=== PATIENT | female | born 1940 | race Caucasian/White ===

== ENCOUNTER 2016-10-21 06:46 | Inpatient (IN) | payer OTHER ==
[2016-09-27 10:59] VITALS: BMI 40.0
--- NOTE | 2016-09-27 11:37 | PAT Medication Instructions ---
Service Date Sep 27, 2016. Current Home Medication List Acetaminophen (Tylenol), 1,000 MG PO TID Aldioxa/Cellulose/Chloroxylen (Zeasorb), 1 DOSE TOP DAILY PRN for BREAST Alprazolam (Xanax), 0.5 TAB PO HS PRN for PRN Aspirin (Aspirin Ec), 81 MG PO 5 X WEEK Calcium/Vitamin D (Os-Nicolas 500 Plus D), 1 TAB PO QAM Cholecalciferol (D 2000), 1 TAB PO QAM Coenzyme Q10 (Ubidecarenone) (Co Q10 *), 1 CAP PO QAM Fish Oil (Presidio-3), 1 CAP PO QAM Hydrochlorothiazide (Hctz *), 25 MG PO QAM Insulin Glargine (Lantus Solostar), 30 UNITS SC HS Irbesartan (Avapro *), 150 MG PO QPM Lactobacillus (Acidophilus), 1 CAP PO QAM Lactobacillus (Acidophilus), 0.5 CAP PO QPM Latanoprost 0.005% Oph (Xalatan 0.005% Oph), 1 DROP OPB QPM Metformin Hcl (Glucophage), 1,000 MG PO QAM Metformin Hcl (Glucophage), 1,500 MG PO QPM Metoprolol Succinate (Metoprolol Succinate ER), 25 MG PO QAM Pioglitazone (Actos *), 15 MG PO QAM Rosuvastatin Calcium (Crestor), 5 MG PO Q2D Timolol Maleate (Timolol 0.5% Oph Soln 15 Ml), 1 DROP OPB QAM Tramadol (Ultram), 50 MG PO Q8H PRN for Pain Verapamil Sust Rel (Calan Sr Ext Rel), 240 MG PO QAM [Bilberry], 1 TABLET PO QAM [Cinnamon], 1 TAB PO QPM [Nichole C], 500 MG PO QAM [Flax Seed Oil], 1,000 MG PO BID Medication Instructions For Your Scheduled Surgery - Hold the following medications 2 weeks prior to surgery: Coenzyme Q10 (Ubidecarenone) (Co Q10 *), 1 CAP PO QAM Fish Oil (Presidio-3), 1 CAP PO QAM [Bilberry], 1 TABLET PO QAM [Cinnamon], 1 TAB PO QPM [Flax Seed Oil], 1,000 MG PO BID - Hold the following medications 48 hours prior to surgery: Metformin Hcl (Glucophage), 1,000 MG PO QAM Metformin Hcl (Glucophage), 1,500 MG PO QPM - Hold the following medications 24 hours prior to surgery: Irbesartan (Avapro *), 150 MG PO QPM Aldioxa/Cellulose/Chloroxylen (Zeasorb), 1 DOSE TOP DAILY PRN for BREAST - Hold the following medications the morning of surgery: Pioglitazone (Actos *), 15 MG PO QAM Calcium/Vitamin D (Os-Nicolas 500 Plus D), 1 TAB PO QAM Cholecalciferol (D 1999), 1 TAB PO QAM Hydrochlorothiazide (Hctz *), 25 MG PO QAM Verapamil Sust Rel (Calan Sr Ext Rel), 240 MG PO QAM [Nichole C], 500 MG PO QAM Lactobacillus (Acidophilus), 1 CAP PO QAM - Take the following medications the morning of surgery with a sip of water OTHERWISE NOTHING TO EAT OR DRINK AFTER MIDNIGHT: Acetaminophen (Tylenol), 1,000 MG PO TID (may take if needed up to 4 hours prior to surgery) Tramadol (Ultram), 50 MG PO Q8H PRN for Pain (may take if needed up to 4 hours prior to surgery) Aspirin (Aspirin Ec), 81 MG PO 5 X WEEK Metoprolol Succinate (Metoprolol Succinate ER), 25 MG PO QAM Timolol Maleate (Timolol 0.5% Oph Soln 15 Ml), 1 DROP OPB QAM - Take the following medications as scheduled the night before surgery: Acetaminophen (Tylenol), 1,000 MG PO TID Alprazolam (Xanax), 0.5 TAB PO HS PRN for PRN Tramadol (Ultram), 50 MG PO Q8H PRN for Pain Rosuvastatin Calcium (Crestor), 5 MG PO Q2D Insulin Glargine (Lantus Solostar), 30 UNITS SC HS Lactobacillus (Acidophilus), 0.5 CAP PO QPM Latanoprost 0.005% Oph (Xalatan 0.005% Oph), 1 DROP OPB QPM If you have any questions please call us at [phone] (Lena Forde PA-C) or [phone] or [phone]
[2016-09-27 12:11] LABS: BASO % 0.6 %; BASO ABS # 0.04 K/uL (0-0.2); COMPLETE YES; EOS % 3.2 %; HEMATOCRIT 38.8 % (37-47); IG% 0.3 %; LYMPH % 27.8 %; LYMPH ABS # 1.88 K/uL (1.2-3.4); MEAN CELL VOLUME 89.8 fL (80-100); MEAN CORPUSCULAR HEMOGLOBIN 29.9 pg (25-34); MEAN CORPUSCULAR HGB CONC 33.2 g/dl (32-36); MEAN PLATELET VOLUME 9.8 fL (7.4-10.4); MONO % 6.5 %; NEUT % 61.6 %; PLATELET COUNT 317 K/uL (130-400); RED BLOOD COUNT 4.32 M/uL (4.2-5.4); WHITE BLOOD COUNT 6.77 K/uL (4.8-10.8)
[2016-09-27 12:14] LABS: URINE APPEARANCE CLEAR (CLEAR); URINE BILIRUBIN NEG (NEG); URINE COLOR YELLOW; URINE NITRITE NEG (NEG); URINE SPECIFIC GRAVITY 1.014 (1.000-1.030); UROBILINOGEN NEG (NEG); ZZUR CULT IF INDIC CLEAN CATCH NO
[2016-09-27 12:19] LABS: PARTIAL THROMBOPLASTIN RATIO 1.1; PROTHROMBIN TIME (PATIENT) 10.7 SECONDS (9.0-12.0)
--- NOTE | 2016-09-27 12:23 | DIAGNOSTIC IMAGING REPORT ---
CHEST 2 VIEWS ROUTINE HISTORY: Preop. COMPARISON: Chest 12/29/2014. FINDINGS: The lungs are clear. Cardiac silhouette is normal in size. No pleural effusions. No pneumothorax. Tortuous thoracic aorta, unchanged. IMPRESSION: No acute process. Electronically signed by: Jian Gonzalez M.D. 09/27/2016 12:21 PM Dictated Date/Time: 09/27/2016 12:18 PM
[2016-09-27 12:33] LABS: MANUAL MICROSCOPIC REQUIRED? NO; REVIEW REQ? NO
[2016-09-27 12:37] LABS: BUN/CREATININE RATIO 23.9 (10-20); CALCIUM 9.5 mg/dl (8.5-10.1); CREATININE 0.59 mg/dl (0.60-1.20); POTASSIUM 4.3 mmol/L (3.5-5.1)
[2016-09-27 12:44] LABS: ESTIMATED AVERAGE GLUCOSE 160 mg/dl; HA1C FLAG Normal (Normal)
--- NOTE | 2016-10-20 09:31 | HISTORY & PHYSICAL EXAMINATION ---
DATE OF ADMISSION: 10/21/16 CHIEF COMPLAINT: Left hip pain. HISTORY OF PRESENT ILLNESS: Fina is a 76-year-old female with a 1 year history of pain in her left hip. The patient rates her pain a 10/10. She has pain with her daily activities. She has limited standing and walking tolerance. Pain is worse with weightbearing. The patient uses a cane to ambulate. She takes Tylenol and tramadol without relief. She has failed conservative treatment and is scheduled for left hip replacement. PAST MEDICAL HISTORY: Diabetes, hypertension, aortic stenosis and acid reflux. She denies heart disease or DVT. PAST SURGICAL HISTORY: Tubal ligation, hysterectomy, micro disc surgery, right total knee replacement. SOCIAL HISTORY: The patient denies alcohol or tobacco use. She lives in a single story home. She is and retired. FAMILY HISTORY: Positive for DVT in her sister. MEDICATIONS: Lantus 30 units daily, metformin 500 mg 2 tablets a.m. 3 tablets p.m., pioglitazone 15 mg daily, metoprolol 50 mg half tablet daily, verapamil 240 mg daily, hydrochlorothiazide 25 mg daily, irbesartan 150 mg daily, tramadol 50 mg p.r.n., timolol 0.5%, Latanoprost 0.005%, acidophilus 1-1/2 tablets daily, calcium 600 mg 1 daily, Nichole-C 500 mg daily, CoQ10 100 mg daily, bilberry extract, zinc, flaxseed oil, aspirin 81 mg, alprazolam 0.5 mg p.r.n., Crestor 5 mg every other day. ALLERGIES: PENICILLIN, CODEINE, MOBIC, SULINDAC, INDERAL AND INDOCIN. REVIEW OF SYSTEMS: See HPI. Ten other systems reviewed, all negative. PHYSICAL EXAMINATION: VITAL SIGNS: Height 5 foot 2 inches. Weight 220 pounds. BMI is 40. GENERAL: This is a well-developed, well-nourished female who is alert and oriented x3. Mood and affect are appropriate. HEENT: Normocephalic, atraumatic. Mucous membranes are moist and intact. NECK: Supple without lymphadenopathy. HEART: Regular rate and rhythm without murmurs, rubs or gallops. LUNGS: Clear to auscultation without wheezes or rhonchi. ABDOMEN: Soft and nontender. Bowel sounds are equal and active. EXTREMITIES: No ecchymosis, redness or warmth. Thigh and calf are soft and nontender. Log roll of the hip reproduces pain in the groin. She is neurovascularly intact with +5/5 strength. X-RAY EXAMINATION: Shows joint space narrowing and osteophyte formation. IMPRESSION: Degenerative joint disease, left hip. PLAN: The patient will be admitted for a left total hip arthroplasty. We will plan on aspirin for DVT prophylaxis. PCP is Dr. Sammy Green in [facility]
[~2016-10-21] VITALS: Ht 157.5 cm; Wt 99.7 kg
[2016-10-21] VITALS (8 sets, daily range): BP systolic 143–180; BP diastolic 75–96; PULSE 59–73; TEMP 36.4–36.7; O2SAT 94–100; Ht 157.5 cm; Wt 99.7 kg
[2016-10-21] MEDS: TRANEXAMIC ACID INJ 1,000 MG in SODIUM CHLORIDE 0.9% 100ML 100 ML IV SCH ×2 (06:30→09:19)
[~2016-10-21 06:46] MED LIST: ACET-1256 PO; ACETAMINOPHEN 500 MG TAB PO SCH; ACT15 PO; ALPR-411 PO; ASPI81TA28 PO; AVP150 PO; BILBERRY PO; BUPIVACAINE 0.5 % 5 MG/1 ML PF 10ML VIAL ONE; CALC500C70 PO; CHOL1TAB76 PO; CINNAMON PO; CLINDAMYCIN 600 MG/54 ML D5W 54 ML IV SCH; COQ10100 PO; CeleBREX 200 MG CAP PO SCH; ESTER C PO; FAMOTIDINE 20 MG TAB PO SCH; FLAX SEED OIL PO; GABAPENTIN 300 MG CAP PO SCH; HYDC25 PO; INSDGIPEN SC; LACTATED RINGER'S 1000ML 1,000 ML IV SCH; LACTATED RINGER'S 1000ML 500 ML IV ONE; LACTATED RINGER'S 1000ML IV SCH; LACTCAP3 PO; LATA0.009 OPB; METF1000 PO; METF500T PO; METOCLOPRAMIDE HCL 10 MG TAB PO SCH; OMEG10007 PO; OXYCODONE HCL 10 MG TABCR (OXYCONTIN) PO SCH; POLYMYXIN B SULFATE 100,000 UNITS in NSS 100ML IR SCH; ROSU5TAB PO; TMPOPS15 OPB; TPRSR/50 PO; TRAM-10 PO; VANCOMYCIN INJ 400 MG in NSS 100ML IR SCH; VERA240T20 PO; ZSRP TOP
[2016-10-21] MEDS ORDERED: PROPOFOL IV EMULSION 10 MG/ML 20 ML VIAL IV ONE ×3 (07:57→11:18)
[2016-10-21] MEDS ORDERED: MIDAZOLAM HCL 1 MG/ML 2ML VIAL ONE ×2 (07:57)
[2016-10-21] MEDS ORDERED: FENTANYL CITRATE INJ 50 MCG/1 ML 2 ML VIAL ONE (07:57)
[2016-10-21] MEDS ORDERED: MEPERIDINE HCL 25 MG/ML CARP IV PRN (08:00)
[2016-10-21] MEDS ORDERED: EpHEDrine SULFATE INJ 50 MG/ML AMP IV PRN (08:00)
[2016-10-21] MEDS ORDERED: ATROPINE SULFATE 0.1 MG/ML 5ML SYR IV PRN (08:00)
[2016-10-21] MEDS ORDERED: FLUMAZENIL 0.1 MG/1 ML 10 ML VIAL IV PRN (08:00)
[2016-10-21] MEDS ORDERED: HYDROmorphone INJ 2 MG/ML SYR/VIAL IV PRN (08:00)
[2016-10-21] MEDS ORDERED: ONDANSETRON INJ 2 MG/ML 2 ML VIAL IV PRN ×2 (08:00→11:15)
[2016-10-21] MEDS ORDERED: NALOXONE HCL 0.4 MG/1 ML VIAL/CARP IV PRN (08:00)
[2016-10-21] MEDS ORDERED: FENTANYL CITRATE INJ 50 MCG/1 ML 2 ML VIAL IV PRN (08:00)
[2016-10-21] MEDS ORDERED: PHENYLEPHRINE 100MCG/ML 5ML SYR IV PRN (08:00)
[2016-10-21] MEDS ORDERED: LABETALOL HCL IV 5 MG/ML 20ML IV PRN (08:00)
--- NOTE | 2016-10-21 09:00 | History & Physical Bridge Note ---
H&P Re-Evaluation Bridge Note: I have examined the patient, reviewed the History & Physical and in the interval since the performance of the History & Physical I have noted the following changes of clinical significance: No changes noted
[2016-10-21] MEDS ORDERED: NURSING VERBAL MED ORDER ONE (09:15)
[2016-10-21] MEDS ORDERED: ROPIVACAINE 5MG/ML 30 ML 150 MG, BUPIVACAINE/EPINEPHR 0.5% MPF 30 ML, KETOROLAC TROMETH... INFIL SCH ×7 (09:30)
[2016-10-21] MEDS ORDERED: POVIDONE-IODINE OP SOLN 30 ML BTL ONE (09:37)
[2016-10-21] MEDS ORDERED: BACITRACIN 50000 UNIT VIAL ONE (09:37)
[2016-10-21] MEDS ORDERED: EpHEDrine SULFATE INJ 50 MG/ML AMP ONE ×2 (10:15→10:20)
[2016-10-21] MEDS ORDERED: PHENYLEPHRINE HCL INJ 10 MG/ML VIAL ONE (10:20)
[2016-10-21] MEDS ORDERED: PHARMACY GLYCEMIC MGMT CONSULT PRN (11:15)
[2016-10-21] MEDS ORDERED: MAGNESIUM HYDROXIDE SUSP 30 ML UDC PO PRN (11:15)
[2016-10-21] MEDS ORDERED: ALUMINUM/MAGNESIUM/SIMETH (MAALOX MAX) 30 ML UDC PO PRN (11:15)
[2016-10-21] MEDS ORDERED: DiphenhydrAMINE HCL 50 MG/ML VIAL IV PRN (11:15)
[2016-10-21] MEDS ORDERED: BISACODYL 10 MG SUPP PR PRN (11:15)
[2016-10-21] MEDS ORDERED: SOD PHOSPHATE/SOD BIPHOSPHATE ENEMA 132 ML BTL PR PRN (11:15)
[2016-10-21] MEDS ORDERED: ALPRAZOLAM 0.5 MG TAB PO PRN (11:15)
[2016-10-21] MEDS ORDERED: METOCLOPRAMIDE HCL INJ 5 MG/ML 2 ML VIAL IV PRN (11:15)
[2016-10-21] MEDS ORDERED: ZOLPIDEM TARTRATE 5 MG TAB PO PRN (11:15)
--- NOTE | 2016-10-21 11:15 | [facility] Post Operative Brief Note ---
Immediate Operative Summary Operative Date Oct 21, 2016. Pre-Operative Diagnosis djd l hip morbid obesity bmi 40 Post-Operative Diagnosis same Procedure(s) Performed L OTTONIEL ANTERIOR Surgeon RICHIE Fitness Assistant Surgeon(s) LONNIE Estimated Blood Loss 50 Findings DJD Specimens BONE Disposition Recovery Room / PACU
--- NOTE | 2016-10-21 11:28 | DIAGNOSTIC IMAGING REPORT ---
LEFT HIP UNILATERAL 1 VIEW CLINICAL HISTORY: LT ANTERIOR TOTAL joint replacement COMPARISON: None. DISCUSSION: Evidence for a total left hip replacement. Good contact between prosthetic and underlying bone. Left hemipelvis is not seen in this series of images. There is no evidence for soft tissue swelling. IMPRESSION: Left hip replacement Electronically signed by: Faisal Pandya M.D. 10/21/2016 11:26 AM Dictated Date/Time: 10/21/2016 11:25 AM
--- NOTE | 2016-10-21 12:20 | DIAGNOSTIC IMAGING REPORT ---
LEFT PELVIS/UNILATERAL HIP 1 VIEW CLINICAL HISTORY: IN PACU - A/P PELVIS and LATERAL HIP INCLUDING ALL OF IMPLANT hip replacement COMPARISON: None. DISCUSSION: Total left hip replacement. No evidence for acetabular protrusion. Good contact between prosthetic and underlying bone. Surgical drain is in position. There is no evidence for soft tissue swelling. IMPRESSION: Total left hip replacement Electronically signed by: Faisal Pandya M.D. 10/21/2016 12:18 PM Dictated Date/Time: 10/21/2016 12:18 PM
--- NOTE | 2016-10-21 12:22 | Anesthesiology Progress Note ---
Anesthesia Post Op Note Date & Time Oct 21, 2016 at 12:22 Vital Signs Pain Intensity: 0 Vital Signs Past 12 Hours Date Time Temp Pulse Resp B/P Pulse Ox O2 Delivery O2 Flow Rate FiO2 10/21/16 11:38 66 16 145/69 100 Mask 10 10/21/16 07:42 36.7 73 18 180/96 94 Room Air Notes Mental Status: alert / awake / arousable, participated in evaluation Pt Amnestic to Procedure: Yes Nausea / Vomiting: adequately controlled Pain: adequately controlled Airway Patency, RR, SpO2: stable & adequate BP & HR: stable & adequate Hydration State: stable & adequate Neuraxial Anesthesia: was administered, sensory block is resolving Anesthetic Complications: no major complications apparent
[2016-10-21] MEDS: SODIUM CHLORIDE 0.9% 1000ML 1,000 ML IV SCH ×2 (13:15→21:36)
--- NOTE | 2016-10-21 13:53 | Pharmacy Progress Note ---
Glycemic Control Intl Consult Date of Service Oct 21, 2016. Scope Glycemic Pharmacist consulted by Dr Alonzo Steve on 10/21/16 for glycemic control and to write orders per [facility] inpatient glycemic control protocol Objective Weight (Kilograms): 99.700 Accuchecks BSG (last 24hrs): Test 10/21/16 07:53 10/21/16 11:54 Bedside Glucose 186 mg/dl (70-90) 166 mg/dl (70-90) HbA1c 7.2% 09/27/16 Recent Pertinent Medications Outpatient Anti-diabetic Regimen: * Lantus 30 units Q HS * Metformin 1gm Q AM + 1.5gm Q PM * Actos 15mg Q AM * A1c = 7.2 % 09/27/16 Risk Factors for Insulin Resistance: * Steroids: Dexamethasone 4mg included in jeremy-articular injection given today * Recent Surgery: POD # 0 s/p L OTTONIEL * Diet: ordered T2DM Assessment & Plan ASSESSMENT: 10/21/16 * Type 2 diabetic admitted today for elective L OTTONIEL * BSGs thus far in the 166-186 range * She appears to be well controlled with her out-patient regimen based upon most recent A1c of 7.2% * She was admitted to the hospital 01/2016 for L TKA - this prior admission was reviewed. She appeared to be sensitive to dexamethasone. A preop dose of dexamethasone 8mg PO x1 had been given that admission and BSGs kan to 340 that day - however no prandial insulin was being given. * This admission she received 4mg dexamethasone jeremy-articularly. This will likely lead to increased insulin resistance today and for the next 24-36 hours. Will monitor BSGs ACHS and at 0200 tonight. These BSGs will be covered with SQ Novolog. Carb ratio will be utilized today to combat steroid effects on post -prandial BSG rise. * Given the patient has not been ordered further steroid doses, will continue the home Lantus dose and utilize more frequent rapid acting insulin administration. PLAN FOR INPATIENT GLYCEMIC CONTROL: * Continuing Lantus 30 units SQ Q HS * BSGs ACHS and at 0200 tonight; all BSGs covered with SQ Novolog * Correction factor 25 mg/dl/unit * Carb ratio 1 unit per 10 grams CHO consumed * Goal range Low 110 mg/dL - High 140 mg/dL * OK to continue the Actos, however would hold the metformin until renal fxn evaluated post-op * Please note that the plan above was derived based on current level of insulin resistance and hospital stress. These recommendations are appropriate for inpatient admission only. Plan of care upon discharge will need to be reassessed to avoid potential outpatient hypo/hyperglycemia. Thank you.
[2016-10-21] MEDS: ACETAMINOPHEN 500 MG TAB PO SCH ×2 (14:04→21:37)
--- NOTE | 2016-10-21 14:21 | OPERATIVE REPORT ---
DATE OF OPERATION: 10/21/2016 PREOPERATIVE DIAGNOSES: 1. Degenerative arthritis, left hip. 2. Morbid obesity, BMI 40. POSTOPERATIVE DIAGNOSES: Same. PROCEDURE: Left total hip replacement. SURGEON: Los Steve MD FINISHER COLD ROLLING: SPEEDY Field ANESTHESIA: Spinal. BLOOD LOSS: 50 mL. REPLACEMENT FLUIDS: 1500 mL crystalloid. DRAINS: Hemovac x1. CULTURES: None. COMPLICATIONS: None. COMPONENTS USED: [employer] hip system: Acetabulum size 48, femur size 5 standard offset, femoral head -3, 32 mm. NOTE: SPEEDY Field was present and assisted throughout due to the complicated nature of this case. She had first assisted throughout, helped with preparation and set up and personally closed the fascial, subcutaneous and skin layers and applied the postoperative dressing. DESCRIPTION OF PROCEDURE: Following satisfactory spinal, the patient was supine. The left leg was placed in the traction device and the right leg in the well leg doty. The left leg was prepared with ChloraPrep and draped sterilely. Following a surgical time-out, an anterior approach in the interval between the sartorius and tensor muscles was completed. The approach was difficult and took additional time because of a very large abdominal pannus and a very heavy body habitus. Eventually, the fascia was opened. The circumflex femoral vessels were identified and ligated and an anterior capsulotomy was performed exposing an arthritic femoral neck and head. Exposure was limited because of the patient's size. The femoral neck and head were trimmed and removed. The acetabular self-retraining retractor was placed. Acetabular preparation was completed and under fluoroscopic guidance, after reaming, a 48 shell was impacted into an anatomic position and secured with a dome screw. Local anesthetic was placed and following irrigation, the polyethylene liner was placed. The femur was then placed into position of external rotation, extension and adduction. Femoral exposure again was limited because of the abdominal pannus. It did require additional time. Eventually, the canal was prepared up to the size 5 and a trial reduction with a -3 head showed congregational of leg lengths using fluoroscopic landmarks and good fit and fill of the proximal canal. The trial component was removed. The final implant was placed. The hip was reduced and showed similar leg lengths, normal offset and good fit and fill. A Betadine soak was performed. After 5 minutes, the Betadine was irrigated. The capsule was closed with #1 Vicryl interrupted. A drain was placed. The fascia was closed with a running suture of #1 Vicryl, the subcutaneous tissues with #1 Vicryl and 2-0 Vicryl. The skin was closed with a running subcuticular stitch of 3-0 V-Loc. Dermabond and a dry dressing were applied. The patient was returned to her bed in stable condition. I attest to the content of the Intraoperative Record and any orders documented therein. Any exceptio ns are noted below.
[2016-10-21] MEDS ORDERED: VERAPAMIL HCL 240 MG TABCR PO ONE (14:30)
[2016-10-21] MEDS ORDERED: METOPROLOL SUCC 25MG EXT REL TAB PO ONE (14:30)
[2016-10-21] MEDS: OXYCODONE HCL IR 5 MG TAB (IMMEDIATE RELEASE) PO PRN ×2 (14:51→19:07)
[2016-10-21] MEDS ORDERED: TRANEXAMIC ACID INJ 1,000 MG in SODIUM CHLORIDE 0.9% 100ML 100 ML IV ONE (16:30)
[2016-10-21] MEDS: MoRPHine SULFATE 2 MG/ML CARP IV PRN ×2 (17:19→21:19)
[2016-10-21] MEDS: CLINDAMYCIN IV 600 MG in DEXTROSE 5% ADD-VANTAGE 50ML 50 ML IV SCH (18:08)
[2016-10-21] MEDS: INSULIN ASPART 100 UNITS/ML 3 ML PEN SC SCH ×2 (18:10→21:26)
[2016-10-21] MEDS: SENNA 8.6 MG TAB PO SCH (21:21)
[2016-10-21] MEDS: ASPIRIN 81 MG ECTAB PO SCH (21:21)
[2016-10-21] MEDS: LACTOBACILLUS ACIDOPHILUS (FLORANEX) TAB PO SCH (21:22)
[2016-10-21] MEDS: IRBESARTAN 150 MG TAB PO SCH (21:22)
[2016-10-21] MEDS: LATANOPROST 0.005% OP SOLN 2.5 ML BTL OPB SCH (21:23)
[2016-10-21] MEDS: INSULIN GLARGINE SOLOSTAR 100 UNITS/ML 3 ML PEN SC SCH (21:27)
[2016-10-21] MEDS ORDERED: ROSUVASTATIN CALCIUM 5 MG TAB PO SCH (22:00)
[2016-10-22] MEDS: OXYCODONE HCL IR 5 MG TAB (IMMEDIATE RELEASE) PO PRN ×4 (01:34→18:45)
[2016-10-22] MEDS: CLINDAMYCIN IV 600 MG in DEXTROSE 5% ADD-VANTAGE 50ML 50 ML IV SCH (01:38)
[2016-10-22] MEDS ORDERED: INSULIN ASPART 100 UNITS/ML 3 ML PEN SC ONE (02:00)
[2016-10-22 03:51] VITALS: BP 124/77; PULSE 64; TEMP 36.6; O2SAT 97
[2016-10-22] MEDS: ACETAMINOPHEN 500 MG TAB PO SCH ×3 (05:46→21:40)
[2016-10-22] MEDS: TRAMADOL HCL 50 MG TAB PO PRN ×2 (05:46→14:29)
[2016-10-22 06:05] LABS: BASO % 0.1 %; BASO ABS # 0.01 K/uL (0-0.2); COMPLETE YES; HEMATOCRIT 30.6 % (37-47); IG% 0.3 %; LYMPH % 7.1 %; LYMPH ABS # 0.85 K/uL (1.2-3.4); MEAN CELL VOLUME 88.7 fL (80-100); MEAN CORPUSCULAR HEMOGLOBIN 30.1 pg (25-34); MEAN PLATELET VOLUME 9.8 fL (7.4-10.4); MONO % 7.9 %; NEUT % 84.6 %; PLATELET COUNT 259 K/uL (130-400); RED BLOOD COUNT 3.45 M/uL (4.2-5.4); WHITE BLOOD COUNT 11.95 K/uL (4.8-10.8)
[2016-10-22 06:31] LABS: BUN/CREATININE RATIO 32.5 (10-20); CALCIUM 8.4 mg/dl (8.5-10.1); CREATININE 0.68 mg/dl (0.60-1.20); POTASSIUM 4.2 mmol/L (3.5-5.1)
[2016-10-22] MEDS: SODIUM CHLORIDE 0.9% 1000ML 1,000 ML IV SCH (06:50)
--- NOTE | 2016-10-22 07:39 | Orthopedic Progress Note ---
Orthopedic Progress Note Date of Service Oct 22, 2016. Subjective Post OP Day: 1 Reports: feeling well, pain controlled w PO medications, Denies: SOB, calf pain , chest pain, complaints, light headedness, nausea / vomiting Objective calves soft nontender, N/V intact, hip located, capillary refill less than 2 sec., dressing C/D/I, A&O x3, toes mobile Date Time Temp Pulse Resp B/P Pulse Ox O2 Delivery O2 Flow Rate FiO2 10/22/16 03:51 36.6 64 16 124/77 97 Room Air 10/22/16 00:55 Room Air 10/21/16 23:42 36.6 67 18 143/80 97 Room Air 10/21/16 19:48 36.6 71 14 169/80 98 Room Air 10/21/16 15:39 36.4 64 16 174/85 97 Room Air 10/21/16 15:30 Room Air 10/21/16 14:35 59 16 153/80 100 10/21/16 13:44 Nasal Cannula 2.0 10/21/16 13:35 69 18 167/76 99 10/21/16 13:05 36.4 60 14 154/75 100 Nasal Cannula 2.0 10/21/16 12:35 36.4 63 14 149/77 98 Nasal Cannula 2.0 10/21/16 12:35 Nasal Cannula 2.0 10/21/16 12:35 Nasal Cannula 2.0 10/21/16 12:30 36.3 16 99 Nasal Cannula 2 10/21/16 12:20 36.3 64 12 99 10/21/16 12:18 148/80 10/21/16 12:17 66 13 10/21/16 12:17 64 13 99 10/21/16 12:13 145/79 10/21/16 12:12 67 14 99 10/21/16 12:12 63 14 10/21/16 12:08 151/70 10/21/16 12:07 66 14 10/21/16 12:07 67 14 98 10/21/16 12:03 149/77 10/21/16 12:02 65 18 10/21/16 12:02 65 18 99 10/21/16 11:58 148/69 10/21/16 11:57 65 17 10/21/16 11:57 67 17 99 10/21/16 11:53 153/74 10/21/16 11:52 65 12 100 10/21/16 11:52 66 12 10/21/16 11:48 134/83 10/21/16 11:47 66 13 10/21/16 11:47 66 13 100 10/21/16 11:43 158/60 10/21/16 11:42 72 18 100 10/21/16 11:42 66 18 10/21/16 11:39 152/69 10/21/16 11:38 66 16 145/69 100 Mask 10 10/21/16 11:38 152/69 10/21/16 11:37 73 23 100 10/21/16 11:37 72 23 10/21/16 07:42 36.7 73 18 180/96 94 Room Air Laboratory Results 24 Hours: Test 10/22/16 05:27 White Blood Count 11.95 K/uL Red Blood Count 3.45 M/uL Hemoglobin 10.4 g/dL Hematocrit 30.6 % Mean Corpuscular Volume 88.7 fL Mean Corpuscular Hemoglobin 30.1 pg Mean Corpuscular Hemoglobin Concent 34.0 g/dl Platelet Count 259 K/uL Mean Platelet Volume 9.8 fL Neutrophils (%) (Auto) 84.6 % Lymphocytes (%) (Auto) 7.1 % Monocytes (%) (Auto) 7.9 % Eosinophils (%) (Auto) 0.0 % Basophils (%) (Auto) 0.1 % Neutrophils # (Auto) 10.11 K/uL Lymphocytes # (Auto) 0.85 K/uL Monocytes # (Auto) 0.95 K/uL Eosinophils # (Auto) 0.00 K/uL Basophils # (Auto) 0.01 K/uL Assessment & Plan Assessment: POD #1, Lt OTTONIEL Plan: PT/ OT DVT proph- ASA D/C plans- Home w HH likely Monday Inhouse Planning Pain Management: Celebrex, Ultram, Morphine, PO Tylenol, Oxy IR DVT Prophylaxis: TEDs, SCDs, ASA Discharge Planning Discharge Planning: home with home health Pain Management: Celebrex, PO Tylenol, Oxy IR DVT Prophylaxis: TEDs, ASA Therapy: Physical Therapy, Occupational Therapy
[2016-10-22 07:58] VITALS: BP 154/85; PULSE 68; TEMP 36.7; O2SAT 97
[2016-10-22] MEDS: CeleBREX 200 MG CAP PO SCH (08:04)
[2016-10-22] MEDS: INSULIN ASPART 100 UNITS/ML 3 ML PEN SC SCH ×4 (09:13→21:03)
[2016-10-22] MEDS: TIMOLOL MALEATE 0.5% OP SOLN 5 ML BTL OPB SCH (09:13)
[2016-10-22] MEDS: HYDROCHLOROTHIAZIDE 25 MG TAB PO SCH (09:14)
[2016-10-22] MEDS: PANTOprazole SOD 40 MG TAB PO SCH (09:14)
[2016-10-22] MEDS: VERAPAMIL HCL 240 MG TABCR PO SCH (09:14)
[2016-10-22] MEDS: MULTIVITAMIN TAB PO SCH (09:14)
[2016-10-22] MEDS: LACTOBACILLUS ACIDOPHILUS (FLORANEX) TAB PO SCH ×2 (09:14→20:57)
[2016-10-22] MEDS: ASPIRIN 81 MG ECTAB PO SCH ×2 (09:14→20:56)
[2016-10-22] MEDS: PIOGLITAZONE TAB 15 MG TAB PO SCH (09:15)
[2016-10-22] MEDS: CALCIUM 600MG + VIT D 400 IU TAB PO SCH (09:15)
[2016-10-22] MEDS: METOPROLOL SUCC 25MG EXT REL TAB PO SCH (09:15)
[2016-10-22] MEDS: METFORMIN HCL 500 MG TAB PO SCH (09:18)
[2016-10-22 12:03] VITALS: BP 146/80; PULSE 52; TEMP 36.6; O2SAT 96
--- NOTE | 2016-10-22 12:29 | Pharmacy Progress Note ---
Glycemic Control: Progress Nt Date of Service Oct 22, 2016. Scope Glycemic Pharmacist consulted by Dr Alonzo Steve on 10/21/16 for glycemic control and to write orders per [facility] inpatient glycemic control protocol. Objective Accuchecks BSG (last 24hrs): Test 10/21/16 16:55 10/21/16 20:56 10/22/16 01:39 10/22/16 05:27 Bedside Glucose 294 mg/dl (70-90) 269 mg/dl (70-90) 182 mg/dl (70-90) Random Glucose 197 mg/dl (70-99) Test 10/22/16 07:46 10/22/16 11:53 Bedside Glucose 195 mg/dl (70-90) 149 mg/dl (70-90) Laboratory Data (last 24hrs) Test 10/22/16 05:27 Anion Gap 6.0 mmol/L BUN/Creatinine Ratio 32.5 Blood Urea Nitrogen 22 mg/dl Creatinine 0.68 mg/dl Potassium Level 4.2 mmol/L Sodium Level 136 mmol/L White Blood Count 11.95 K/uL Red Blood Count 3.45 M/uL Hemoglobin 10.4 g/dL Hematocrit 30.6 % Mean Corpuscular Volume 88.7 fL Mean Corpuscular Hemoglobin 30.1 pg Mean Corpuscular Hemoglobin Concent 34.0 g/dl Platelet Count 259 K/uL Mean Platelet Volume 9.8 fL Neutrophils (%) (Auto) 84.6 % Lymphocytes (%) (Auto) 7.1 % Monocytes (%) (Auto) 7.9 % Eosinophils (%) (Auto) 0.0 % Basophils (%) (Auto) 0.1 % Neutrophils # (Auto) 10.11 K/uL Lymphocytes # (Auto) 0.85 K/uL Monocytes # (Auto) 0.95 K/uL Eosinophils # (Auto) 0.00 K/uL Basophils # (Auto) 0.01 K/uL HbA1c: 7.2% 09/27/16 Recent Pertinent Medications Outpatient Anti-diabetic Regimen: * Lantus 30 units Q HS * Metformin 1gm Q AM + 1.5gm Q PM * Actos 15mg Q AM * A1c = 7.2 % 09/27/16 Current Inpatient regimen: * Basal Insulin: Lantus 30 units SQ Q HS * Correctional Insulin: Novolog SQ ACHS * Goal range: 110-140 mg/dL * Correction factor: 25mg/dL/unit * Prandial Insulin: Novolog SQ using carb ratio of 1 unit per 10 grams CHO consumed w/ meals * PO hypoglycemics: * Pioglitazone 15mg PO Q AM Risk Factors for Insulin Resistance: * Steroids: Dexamethasone 4mg included in jeremy-articular injection given yesterday (10/21/16) * Recent Surgery: POD # 01s/p L OTTONIEL * Diet: ordered T2DM and appears to be tolerating well. No NV per provider's assessment this AM Assessment & Plan ASSESSMENT: 10/21/16 * Type 2 diabetic admitted today for elective L OTTONIEL * BSGs thus far in the 166-186 range * She appears to be well controlled with her out-patient regimen based upon most recent A1c of 7.2% * She was admitted to the hospital 01/2016 for L TKA - this prior admission was reviewed. She appeared to be sensitive to dexamethasone. A preop dose of dexamethasone 8mg PO x1 had been given that admission and BSGs kan to 340 that day - however no prandial insulin was being given. * This admission she received 4mg dexamethasone jeremy-articularly. This will likely lead to increased insulin resistance today and for the next 24-36 hours. Will monitor BSGs ACHS and at 0200 tonight. These BSGs will be covered with SQ Novolog. Carb ratio will be utilized today to combat steroid effects on post -prandial BSG rise. * Given the patient has not been ordered further steroid doses, will continue the home Lantus dose and utilize more frequent rapid acting insulin administration. 10/22/16: * BSGs did quickly rise following surgery yesterday as expected. * However this AM BSGs are down to 190's and pre-lunch is down to 140's - the effects of dexamethasone are dissipating * Renal fxn evaluated this AM; SCr 0.68, eCrCl 78cc/min, pt is tolerating meals - will restart the home dosage of metformin at this time * Now that the patient's insulin resistance is improving and metformin is being restated, the need for prandial insulin is lessened. Will reduce the CR dose. Her level of glycemic control appeared to be good prior to admission and she will now be receiving her full home regimen. PLAN FOR INPATIENT GLYCEMIC CONTROL: * Continuing Lantus 30 units SQ Q HS * Continue correction factor 25 mg/dl/unit * Change carb ratio to 1 unit per 12 grams CHO consumed - may completely eliminate in the next 24 hours depending on post-prandial results * Continue goal range of Low 110 mg/dL - High 140 mg/dL * Continue the Actos 15mg daily * Restart Metformin 1gm PO Q AM + 1.5gm PO Q PM * Please note that the plan above was derived based on current level of insulin resistance and hospital stress. These recommendations are appropriate for inpatient admission only. Plan of care upon discharge will need to be reassessed to avoid potential outpatient hypo/hyperglycemia. Thank you.
[2016-10-22 15:05] VITALS: BP 162/84; PULSE 64; TEMP 36.9; O2SAT 97
[2016-10-22] MEDS: MoRPHine SULFATE 2 MG/ML CARP IV PRN (16:09)
[2016-10-22] MEDS ORDERED: METFORMIN HCL 500 MG TAB PO ONE (17:15)
[2016-10-22] MEDS ORDERED: METFORMIN HCL 500 MG TAB PO SCH (17:15)
[2016-10-22] MEDS: LATANOPROST 0.005% OP SOLN 2.5 ML BTL OPB SCH (20:55)
[2016-10-22] MEDS: SENNA 8.6 MG TAB PO SCH (20:55)
[2016-10-22] MEDS: IRBESARTAN 150 MG TAB PO SCH (20:56)
[2016-10-22 20:58] VITALS: BP 144/75
[2016-10-22] MEDS: INSULIN GLARGINE SOLOSTAR 100 UNITS/ML 3 ML PEN SC SCH (21:04)
[2016-10-22 23:09] VITALS: BP 173/72; PULSE 61; TEMP 36.8; O2SAT 98
[2016-10-23] MEDS: OXYCODONE HCL IR 5 MG TAB (IMMEDIATE RELEASE) PO PRN ×2 (01:06→07:43)
[2016-10-23 01:30] VITALS: BP 152/79; PULSE 60
[2016-10-23] MEDS: ACETAMINOPHEN 500 MG TAB PO SCH (05:24)
[2016-10-23 06:50] VITALS: BP 178/77; PULSE 60; TEMP 36.8; O2SAT 97
--- NOTE | 2016-10-23 07:30 | Orthopedic Progress Note ---
Orthopedic Progress Note Date of Service Oct 23, 2016. Subjective Post OP Day: 2 Reports: feeling well, pain controlled w PO medications, Denies: SOB, calf pain , chest pain, complaints, light headedness, nausea / vomiting Objective calves soft nontender, N/V intact, capillary refill less than 2 sec., incision C /D/I, A&O x3, toes mobile Date Time Temp Pulse Resp B/P Pulse Ox O2 Delivery O2 Flow Rate FiO2 10/23/16 06:50 36.8 60 18 178/77 97 Room Air 10/23/16 01:30 60 152/79 10/23/16 00:35 Room Air 10/22/16 23:09 36.8 61 16 173/72 98 Room Air 10/22/16 20:58 144/75 10/22/16 15:45 Room Air 10/22/16 15:05 36.9 64 14 162/84 97 Room Air 10/22/16 12:03 36.6 52 16 146/80 96 Room Air 10/22/16 07:58 36.7 68 16 154/85 97 Room Air 10/22/16 07:40 Room Air Assessment & Plan Assessment: POD #2, Lt OTTONIEL Plan: PT/ OT DVT proph- ASA D/C plans- Home w HH TODAY Inhouse Planning Pain Management: Celebrex, Ultram, Morphine, PO Tylenol, Oxy IR DVT Prophylaxis: TEDs, SCDs, ASA Discharge Planning Discharge Planning: home with home health Pain Management: Celebrex, PO Tylenol, Oxy IR DVT Prophylaxis: TEDs, ASA Therapy: Physical Therapy, Occupational Therapy
[2016-10-23] MEDS: CeleBREX 200 MG CAP PO SCH (07:34)
[2016-10-23] MEDS ORDERED: CLB200 PO (07:35)
[2016-10-23] MEDS: TIMOLOL MALEATE 0.5% OP SOLN 5 ML BTL OPB SCH (07:35)
[2016-10-23] MEDS ORDERED: ACET-1138 PO (07:35)
[2016-10-23] MEDS ORDERED: ASPEC81 PO (07:35)
[2016-10-23] MEDS ORDERED: ONDA8TAB6 PO (07:35)
[2016-10-23] MEDS ORDERED: RXC5 PO (07:35)
[2016-10-23] MEDS: PIOGLITAZONE TAB 15 MG TAB PO SCH (07:36)
[2016-10-23] MEDS: VERAPAMIL HCL 240 MG TABCR PO SCH (07:36)
[2016-10-23] MEDS: LACTOBACILLUS ACIDOPHILUS (FLORANEX) TAB PO SCH (07:36)
[2016-10-23] MEDS: ASPIRIN 81 MG ECTAB PO SCH (07:36)
[2016-10-23] MEDS: CALCIUM 600MG + VIT D 400 IU TAB PO SCH (07:36)
--- NOTE | 2016-10-23 07:36 | Discharge Instructions ---
Discharge Instructions Admission Reason for Admission: Left Hip Degenerative Arthritis Discharge Discharge Diagnosis / Problem: LEFT OTTONIEL Discharge Goals Goal(s): Improve function Activity Recommendations Activity Limitations: as noted below . Instructions / Follow-Up Instructions / Follow-Up ACTIVITY RECOMMENDATIONS: SELF CARE INSTRUCTIONS AFTER TOTAL HIP REPLACEMENT Until the incision and soft tissues around your hip have healed, there is a possibility that the hip prosthesis could dislocate. A. Observe the following precautions to prevent dislocation: 1. Don't bend your hip greater than 90 degrees. 2. Avoid crossing your legs or ankles while standing or lying. 3. Sit with your feet placed 6 inches apart. 4. When sitting, keep your knees below your hips. Sit on a firm surface, avoid deep, soft chairs and couches. Use an elevated toilet seat in the bathroom. 5. Don't bend over at the waist. Use a long handled shoehorn and a sock aid to help you put on your shoes and socks. A business services intern can help you strip picker objects that are too high or too low to reach. 6. Keep car riding to a minimum for at least one month after surgery. B. Your balance may be shaky for a while. Use crutches or a walker until directed by your doctor. C. Use hand rails when walking on stairs. D. Wear low heeled shoes with non-slip soles. E. Be sure that your floors are free of things that could trip you - throw rugs , electrical cords, small objects. Avoid wet and waxed floors, especially with crutches and canes. F. Try to walk several times a day with rest periods between. G. Continue with all the exercises taught to you in the hospital. Again, make walking a part of your daily routine. SPECIAL CARE INSTRUCTIONS: VERY IMPORTANT TO READ AND REVIEW A. You may still be at risk for phlebitis and blood clots. 1. Wear surgical stockings (LALO hose) for 2 weeks after surgery to improve circulation and reduce swelling. 2. Take Aspirin 81mg twice daily for 4 weeks or as directed by your doctor. This is your blood thinner. 3. High risk patients may be prescribed a stronger blood thinner if necessary. 4. If you are on Coumadin normally, your family doctor/dowel sander operator should monitor your blood work. Expect a phone call the day of or the day after bloodwork is drawn to adjust your dosage. B. You must take antibiotics before having dental work, bladder, bowel and other surgery. Your doctor will provide you with a permanent card to carry describing precautions. C. Call [facility] if you have a fever, redness or swelling around the incision, cloudy drainage from incision, or sudden increase in pain in your hip, not relieved by your regular pain medication. D. Please call the office at if you have any concerns or questions about your operation or recovery. * YOU MAY SHOWER, NO TUB BATHS UNTIL CLEARED BY YOUR DOCTOR. * WEAR LALO HOSE 20 HOURS PER DAY FOR 2 WEEKS. * YOU SHOULD USE A WALKER OR CRUTCHES FOR 2-4 WEEKS. THIS WILL HELP PREVENT STRAIN ON YOUR HIP MUSCLE AND ALLOW IT TO HEAL PROPERLY. YOU MAY WEAN TO A CANE TOLERATED. * MOST PATIENTS WILL HAVE HOME NURSING FOR THERAPY. IF YOU DECIDE TO DO OUTPATIENT PHYSICAL THERAPY, PLEASE SCHEDULE THIS 3 TIMES PER WEEK. * YOU MAY HAVE A LARGE, BAND-BENITA LIKE DRESSING (SILVERON). THIS WILL REMAIN ON YOUR INCISION FOR 7 DAYS, THEN CAN BE REMOVED. IF INCISION IS LEAKING THROUGH DRESSING, PLEASE CALL THE OFFICE . FOLLOW UP VISIT: If appointment is not already scheduled: Please call [facility] to make a follow-up appointment for 2 weeks after your surgery at . Current Hospital Diet Patient's current hospital diet: Diabetes Type 2 Diet Discharge Diet Recommended Diet: Diabetes Type 2 Diet Procedures Procedures Performed: L OTTONIEL ANTERIOR Pending Studies Studies pending at discharge: no Laboratory Results Hemoglobin A1c Test 09/27/16 11:43 Range/Units Estimated Average Glucose 160 mg/dl Hemoglobin A1c 7.2 H 4.5-5.6 % Medical Emergencies . Who to Call and When: Medical Emergencies: If at any time you feel your situation is an emergency, please call 911 immediately. . Non-Emergent Contact Non-Emergency issues call your: Primary Care Provider . "Provider Documentation" section prepared by Faisal Perry. VTE Core Measure Inpt VTE Proph given/why not?: Other Anticoagulation (ASA), T.E.D. Stockings, SCD's
[2016-10-23] MEDS: PANTOprazole SOD 40 MG TAB PO SCH (07:37)
[2016-10-23] MEDS: MULTIVITAMIN TAB PO SCH (07:37)
[2016-10-23] MEDS: HYDROCHLOROTHIAZIDE 25 MG TAB PO SCH (07:37)
[2016-10-23] MEDS: METFORMIN HCL 500 MG TAB PO SCH (07:37)
[2016-10-23] MEDS: METOPROLOL SUCC 25MG EXT REL TAB PO SCH (07:38)
[2016-10-23] MEDS: INSULIN ASPART 100 UNITS/ML 3 ML PEN SC SCH (08:07)
[2016-10-23 09:47] VITALS: BP 178/77; PULSE 60; TEMP 36.8; O2SAT 97
--- NOTE | 2016-10-31 14:29 | DISCHARGE SUMMARY ---
DISCHARGE DIAGNOSIS: Degenerative joint disease, left hip. SECONDARY DIAGNOSIS: None. CONSULTS: None. COMPLICATIONS: None. PROCEDURE: The patient underwent a direct anterior left total hip arthroplasty with Dr. Steve on 10/21/2016. BRIEF HISTORY: Please see previously dictated history and physical. HOSPITAL SUMMARY: The patient was admitted on the above day for the above procedure. Procedure went without complication. Postop day 1, the patient was feeling well without complaints. She denied chest pain or shortness of breath. Vital signs were stable. She was afebrile. Dressing was clean, dry and intact. She was neurovascularly intact. Calves were soft and nontender. Hemoglobin was 10.4. The patient began physical therapy per protocol. Postop day 2, the patient continued to improve. She denied chest pain or shortness of breath. Vital signs were stable. She was afebrile. Dressing was clean, dry and intact. She was neurovascularly intact. Calves were soft and nontender. The patient continued to progress with therapy and was discharged to home later that day in stable condition. For further review please see the chart. Lab, x-ray data and discharge instructions as per chart.
== END 2016-10-23 11:06 | disposition home health service (06) | DRG 470 ==
LOC: ENRESERVTM → ENRESERVDT → C.ACU 06:46 → C.3E 11:21
PROVIDERS: ADMIT Orthopaedic Surgery; ATTEND Orthopaedic Surgery
PROC: 0SRB04Z Replacement of Left Hip Joint with Ceramic on Polyethylene Synthetic Substitute, Open Approach (ICD-10-PCS; principal; 2016-10-21 09:20)
DX: M16.12 Unilateral primary osteoarthritis, left hip (principal); Z68.41 Body mass index [BMI] 40.0-44.9, adult; E11.9 Type 2 diabetes mellitus without complications; I10 Essential (primary) hypertension; K21.9 Gastro-esophageal reflux disease without esophagitis; I35.0 Nonrheumatic aortic (valve) stenosis; E66.01 Morbid (severe) obesity due to excess calories; F41.9 Anxiety disorder, unspecified; Z96.651 Presence of right artificial knee joint; Z79.82 Long term (current) use of aspirin; Z79.4 Long term (current) use of insulin; Z79.84 Long term (current) use of oral hypoglycemic drugs; Z79.891 Long term (current) use of opiate analgesic; Z79.899 Other long term (current) drug therapy